=== PATIENT | female | born 1960 | race Caucasian/White ===

== ENCOUNTER 2016-04-03 07:57 | Emergency (ER) | payer MEDICAID ==
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
== END 2016-04-03 08:55 | disposition home or self-care (01) ==
LOC: ER 07:57
DX: H66.92 Otitis media, unspecified, left ear (principal); J02.9 Acute pharyngitis, unspecified; E11.9 Type 2 diabetes mellitus without complications
CPT/HCPCS: 99283; 96372; J0696; J2001; Z7502

== ENCOUNTER 2016-06-09 10:40 | Emergency (ER) | payer MEDICAID ==
[2016-06-09 10:56] VITALS: BP 122/75
--- NOTE | 2016-06-09 12:12 | ED Physician Chart ---
Chief Complaint/HPI - Patient Information Date Seen:: 06/09/16 Time Seen:: 10:59 Chief Complaint:: LEFT BREAST PAIN History of Present Illness:: THIS IS A 55 YO FEMALE WITH FOUR MONTHS OF LEFT BREAST PAIN UNDER THE NIPPLE. 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 SHE IS NOW CONCERNED WITH THE LEFT BREAST. SHE DENIES NIPPLE DISCHARGE, BLEEDING AND NO OTHER AREA OF THE BREAST MASSES OR TENDERNESS. SHE DENIES FEVER AND OF ANY OTHER MEDICAL PROBLEMS. THERE IS NO FAMILY HISTORY OF BREAST CANCER. Allergies:: Allergies Allergy/AdvReac Type Severity Reaction Status Date / Time No Known Allergies Allergy Verified 04/03/16 08:25 Vitals:: Vital Signs - 8 hr 06/09/16 06/09/16 10:56 10:57 Temp 97.8 F HR 79 RR 15 BP 122/75 122/75 O2 Sat % 97 Review of Systems - Review of Systems General/Constitutional: No fever, No chills, No weight loss, No weakness, No diaphoresis, No edema, No loss of appetite Skin: No skin lesions, No rash, No bruising Head: No headache, No light-headedness Eyes: No loss of vision, No pain, No diplopia ENT: No earache, No nasal drainage, No sore throat, No tinnitus Neck: No neck pain, No swelling, No thyromegaly, No stiffness, No mass noted Cardio Vascular: No chest pain, No palpitations, No PND, No orthopnea, No edema , other (LEFT BREAST TENDERNESS) Pulmonary: No SOB, No cough, No sputum, No wheezing GI: No nausea, No vomiting, No diarrhea, No pain, No melena, No hematochezia, No constipation, No hematemesis G/U: No dysuria, No frequency, No hematuria Musculoskeletal: No bone or joint pain, No back pain, No muscle pain Endocrine: No polyuria, No polydipsia Psychiatric: No prior psych history, No depression, No anxiety, No suicidal ideation Hematopoietic: No bruising, No lymphadenopathy Allergic/Immuno: No urticaria, No angioedema Neurological: No syncope, No focal symptoms, No weakness, No paresthesia, No headache, No seizure, No dizziness, No confusion, No vertigo Past Medical History - Past Medical History Past Medical History: No significant medical hx Family History: None Social History: Non Smoker, No Alcohol, No Drug Use Surgical History: other (BIOPSY OF THE RIGHT BREAST.) Family Medical History - Family Member Mother History Unknown: Yes Ethnicity: Hx Family Cancer: No Hx Family Coronary Artery Disease: No Hx Family Stroke: No Hx Family Diabetes: No Hx Family Seizures: No Hx Family Dementia: No Hx Family AIDS: No Hx Family HIV: No Physical Exam - Physical Examination General/Constitutional: Awake, Well-developed, well-nourished, Alert, No distress, GCS 15, Non-toxic appearing, Ambulatory Head: Atraumatic Eyes: Lids, conjuctiva normal, PERRL, EOMI Skin: Nl inspection, No rash, No skin lesions, No ecchymosis, Well hydrated, No lymphadenopathy ENMT: External ears, nose nl, Nasal exam nl, Lips, teeth, gums nl Neck: Nontender, Full ROM w/o pain, No JVD, No nuchal rigidity, No bruit, No mass, No stridor Respiratory: Nl effort/Exclusion, Clear to Auscultation, No Wheeze/Rhonchi/Rales Cardio Vascular: RRR, No murmur, gallop, rubs, NL S1 S2 Other Cardio Vascular comments:: LEFT BREAST NIPPLE AREA MASS THAT IS TENDER ON PALPATION. GI: No tenderness/rebounding/guarding, No organomegaly, No hernia, Normal BS's, Nondistended, No mass/bruits, No McBurney tenderness : No CVA tenderness Extremities: No tenderness or effusion, Full ROM, normal strength in all extremities, No edema, Normal digits & nails Neuro/Psych: Alert/oriented, DTR's symmetric, Normal sensory exam, Normal motor strength, Judgement/insight normal, Mood normal, Normal gait, No focal deficits Misc: normal gait, Normal back, No paraspinal tenderness ED Septic Shock - . Is Septic Shock (SBP<90, OR Lactate>4 mmol\L) present?: No - <6hrs of presentation: Vital Signs: Vital Signs - 8 hr 06/09/16 06/09/16 10:56 10:57 Temp 97.8 F HR 79 RR 15 BP 122/75 122/75 O2 Sat % 97 Reassessment (Disposition) - Reassessment Reassessment Condition:: Unchanged - Diagnosis Diagnosis:: LEFT BREAST MASS - Aftercare/Follow up Instructions Aftercare/Follow-Up Instructions:: Counseled pt regarding lab results/diagnosis & need follow up, Refer to Discharge Instructions, Counseled pt & family regarding lab results/diagnosis & need follow up - Patient Disposition Discharge/Transfer:: Home Condition at Disposition:: Unchanged ED Discharge Plan - Patient Disposition Admit/Discharge/Transfer: PT DISCHARGED HOME Condition at Disposition: Unchanged
--- NOTE | 2016-06-09 12:27 | Diagnostic Imaging Report ---
Ultrasound left breast HISTORY: Mass. Sonographic sector images were obtained about the quadrants of the left breast. The exam demonstrates a 0.7 x 0.5 x 0.7 cm heterogeneous nodule solid characteristics in the periareolar region. Sonographic appearance is indeterminate. Mammographic correlation is recommended. No other focal lesions are sonographically demonstrated. IMPRESSION: 1. Subcentimeter heterogeneous solid nodule within the periareolar region of the left breast. The appearance is indeterminate. Mammographic correlation is recommended.
[2016-06-09 12:32] LABS: % BASOPHILS 1.1 % (0.0-2.0); % EOSINOPHILS 0.7 % (0.0-5.0); % LYMPHOCYTES 28.3 % (20.0-50.0); % MONOCYTES 6.7 % (2.0-10.0); % NEUTROPHILS 63.2 % (40.0-80.0); HEMATOCRIT 38.9 % (35.0-45.0); HEMOGLOBIN 13.1 gm/dL (11.7-15.5); MEAN CELL VOLUME 86.6 fl (81-100); MEAN CORPUSCULAR HEMOGLOBIN 29.2 pg (27.0-31.0); MEAN CORPUSCULAR HGB CONC 33.8 pg (28.0-36.0); MEAN PLATELET VOLUME 7.9 fl; NEUTROPHILE ABSOLUTE 4.7 Th/cmm (1.8-8.0); PLATELET COUNT 356 Th/cmm (150-400); RED BLOOD COUNT 4.49 Mil/cmm (3.80-5.10); RED CELL DISTRIBUTION WIDTH 13.3 % (11.5-20.0)
[2016-06-09 12:35] LABS: WHITE BLOOD COUNT 7.6 Th/cmm (4.8-10.8)
== END 2016-06-09 13:00 | disposition home or self-care (01) ==
LOC: ER 10:40
DX: N63 Unspecified lump in breast (principal)
CPT/HCPCS: 99285; 96372; 76645; 36415; 85025; 83036; J0696

== ENCOUNTER 2016-12-30 17:07 | Emergency (ER) | payer MEDICAID ==
[2016-12-30] MEDS ORDERED: Morphine Sulfate 4 mg/mL 1mL Syr IVP ONE (18:19)
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
[2016-12-30] MEDS ORDERED: Morphine Sulfate 2 mg/mL 1mL Syr ONE (19:25)
[2016-12-30] MEDS ORDERED: Morphine Sulfate 4 mg/mL 1mL Syr ONE (19:25)
[2016-12-30] MEDS ORDERED: Pantoprazole 40 mg EC Tab PO STA (19:39)
--- NOTE | 2016-12-31 08:04 | Diagnostic Imaging Report ---
Exam: Portable examination of pelvis. HISTORY: Injury. Findings: Frontal examination of the pelvis portably at 1924 hours was reviewed. The study demonstrates no evidence of fracture dislocation. The hip joints , sacral iliac joints and pubic symphysis are intact. IMPRESSION: normal examination of pelvis.
--- NOTE | 2016-12-31 08:06 | Diagnostic Imaging Report ---
Exam: Lumbar sacral spine. HISTORY: Pain Findings: Multiple views of lumbar sacral spine reviewed. The study demonstrates vertebral bodies of normal height with preserved intervertebral disc spaces. There is no evidence of fracture dislocation or subluxation. There is no evidence of spondylolysis or spondylolisthesis. No prevertebral soft tissue swelling is noted. The pedicles are intact. The visualized posterior elements are normal. IMPRESSION: Normal examination lumbar sacral spine.
--- NOTE | 2016-12-31 08:07 | Diagnostic Imaging Report ---
EXAM: Cervical spine HISTORY: Pain FINDINGS: Multiple views of cervical spine reviewed. The study demonstrates vertebral bodies of normal height with preserved intervertebral disc spaces. There is no evidence of fracture dislocation of subluxation. There is no evidence of spondylolysis or spondylolisthesis. No prevertebral soft tissue swelling is noted the pedicles are intact. Straightening of cervical lordosis might be due to positioning or muscle spasm. IMPRESSION: Normal examination of cervical spine.
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
== END 2016-12-30 20:20 | disposition home or self-care (01) ==
LOC: ER 17:07
DX: S19.9XXA Unspecified injury of neck, initial encounter (principal); S79.911A Unspecified injury of right hip, initial encounter; S79.912A Unspecified injury of left hip, initial encounter; X58.XXXA Exposure to other specified factors, initial encounter; Y93.89 Activity, other specified; Y92.89 Other specified places as the place of occurrence of the external cause; Y99.8 Other external cause status
CPT/HCPCS: 99284; 96374; 96375; 72040; 72100; 72170; J2270; J2405; 81025-TC; J1885; Z7502

== ENCOUNTER 2017-04-24 21:38 | Emergency (ER) | payer MEDICAID ==
[2017-04-24 22:46] LABS: URINE MICROSCOPIC INDICATED? YES; URINE SOURCE RANDOM
--- NOTE | 2017-04-24 22:47 | ED Physician Chart ---
ED Chief Complaint/HPI - Patient Information Date Seen:: 04/24/17 Time Seen:: 22:46 Chief Complaint:: Urinary frequency and burning sensation History of Present Illness:: 56 yo female with history of pre-diabetes and frequent UTI, developed urinary frequency, burning sensation and itchiness for 2 weeks. She tried monostat and dushing without effect. She did not have nausea, vomiting, diarrhea or fever. Allergies:: Allergies Allergy/AdvReac Type Severity Reaction Status Date / Time No Known Allergies Allergy Verified 04/24/17 22:23 Vitals:: Vital Signs - 8 hr 04/24/17 22:00 Temp 98.2 F HR 59 RR 20 BP 137/82 O2 Sat % 98 ED Review of Systems - Review of Systems General/Constitutional: No fever Skin: No skin lesions Head: No headache Eyes: No pain ENT: No nasal drainage Neck: No neck pain Cardio Vascular: No chest pain Pulmonary: No SOB GI: No nausea, No vomiting G/U: Dysuria Musculoskeletal: No bone or joint pain Psychiatric: No prior psych history Neurological: No focal symptoms ED Past Medical History - Past Medical History Past Medical History: Other (Pre-diabetic, UTIs) Social History: Non Smoker, No Alcohol, No Drug Use Surgical History: other (Tubal ligation, right breast benign nodule removal) Family Medical History - Family Member Mother History Unknown: Yes Ethnicity: Hx Family Cancer: No Hx Family Coronary Artery Disease: No Hx Family Congestive Heart Failure: No Hx Family Hypertension: No Hx Family Stroke: No Hx Family Diabetes: No Hx Family Seizures: No Hx Family Dementia: No Hx Family AIDS: No Hx Family HIV: No ED Physical Exam - Physical Examination General/Constitutional: Awake, Alert Head: Atraumatic Eyes: PERRL Skin: No skin lesions ENMT: Nasal exam nl Neck: No nuchal rigidity Respiratory: Clear to Auscultation, No Wheeze/Rhonchi/Rales Cardio Vascular: RRR, No murmur, gallop, rubs, NL S1 S2 Other GI comments:: Low abdomen tenderness : NL external genitalia (dry white discharge) Other comments:: Right CVA percussion tenderness Neuro/Psych: No focal deficits ED Labs/Radiology/EKG Results - Lab Results Results: Laboratory Results - last 24 hr 04/24/17 04/24/17 04/24/17 22:00 22:56 22:56 WBC 5.5 RBC 4.45 Hgb 13.5 Hct 39.9 L MCV 89.8 MCH 30.3 MCHC Differential 33.7 RDW 14.6 Plt Count 357 MPV 7.1 Neutrophils % 47.5 Lymphocytes % 41.8 Monocytes % 9.4 Eosinophils % 0.9 Basophils % 0.4 Sodium 134 L Potassium 3.3 L Chloride 104 Carbon Dioxide 24.3 Anion Gap 9.0 BUN 13 Creatinine 0.6 Est GFR ( Amer) > 60.0 Est GFR (Non-Af Amer) > 60.0 BUN/Creatinine Ratio 21.7 Glucose 122 H Calcium 9.8 Urine Source RANDOM Urine Color YELLOW Urine Clarity CLEAR Urine pH 6.0 Ur Specific [place] 1.010 Urine Protein NEGATIVE Urine Glucose (UA) NEGATIVE Urine Ketones TRACE Urine Blood SMALL H Urine Nitrate NEGATIVE Urine Bilirubin NEGATIVE Urine Urobilinogen 0.2 Ur Leukocyte Esterase NEGATIVE Urine RBC 0-2 Urine WBC 0-2 Ur Epithelial Cells FEW Urine Bacteria FEW ED Assessment - Assessment General Assessment: Dysuria Vaginitis Assessment/Comments:: CBC, BMP, HbA1c, UA Diflucan 100mg po x 1 D/c home F/u PCP and Merchandise Manager if symptoms persist ED Septic Shock - . Is Septic Shock (SBP<90, OR Lactate>4 mmol\L) present?: No - <6hrs of presentation: Vital Signs: Vital Signs - 8 hr 04/24/17 22:00 Temp 98.2 F HR 59 RR 20 BP 137/82 O2 Sat % 98 ED Reassessment (Disposition) - Reassessment Reassessment Condition:: Unchanged
[2017-04-24 22:50] LABS: URINE BILIRUBIN NEGATIVE (NEGATIVE); URINE BLOOD SMALL (NEGATIVE); URINE GLUCOSE (UA) NEGATIVE (NEGATIVE); URINE KETONE TRACE mg/dL (NEGATIVE); URINE LEUKOCYTE ESTERASE NEGATIVE (NEGATIVE); URINE NITRATE NEGATIVE (NEGATIVE); URINE PROTEIN NEGATIVE (NEGATIVE); URINE UROBILINOGEN 0.2 E.U./dL (0.2 - 1.0)
[2017-04-24 23:03] LABS: URINE CLARITY CLEAR (CLEAR); URINE COLOR YELLOW
[2017-04-24 23:04] LABS: URINE BACTERIA FEW /hpf (NONE SEEN); URINE EPITHELIAL CELLS FEW /lpf (FEW); URINE RBC 0-2 /hpf (0-5); URINE WBC 0-2 /hpf (0-5)
[2017-04-24 23:06] LABS: % BASOPHILS 0.4 % (0.0-2.0); % EOSINOPHILS 0.9 % (0.0-5.0); % LYMPHOCYTES 41.8 % (20.0-50.0); % MONOCYTES 9.4 % (2.0-10.0); % NEUTROPHILS 47.5 % (40.0-80.0); HEMATOCRIT 39.9 % (41.0-60); HEMOGLOBIN 13.5 gm/dL (12-16); LYMPHOCYTE ABSOLUTE 2.3 Th/cmm (1.5-3.0); MEAN CELL VOLUME 89.8 fl (81-100); MEAN CORPUSCULAR HEMOGLOBIN 30.3 pg (27.0-31.0); MEAN CORPUSCULAR HGB CONC 33.7 pg (28.0-36.0); MEAN PLATELET VOLUME 7.1 fl; MONOCYTE ABSOLUTE 0.5 Th/cmm (0.3-1.0); NEUTROPHILE ABSOLUTE 2.7 Th/cmm (1.8-8.0); PLATELET COUNT 357 Th/cmm (150-400); RED BLOOD COUNT 4.45 Mil/cmm (3.80-5.10); RED CELL DISTRIBUTION WIDTH 14.6 % (11.5-20.0); WHITE BLOOD COUNT 5.5 Th/cmm (4.8-10.8)
[2017-04-24 23:20] LABS: BUN - UREA NITROGEN 13 mg/dL (7-25); CALCIUM SERUM 9.8 mg/dL (8.6-10.3); CARBON DIOXIDE 24.3 mEq/L (21.0-31.0); CHLORIDE 104 mEq/L (98-107); CREATININE - SERUM 0.6 mg/dL (0.6-1.2); GFR AFRICAN-AMERICAN > 60.0 ml/min (>90); GFR NON AFRICAN-AMERICAN > 60.0 ml/min; GLUCOSE 122 mg/dL (70-105); POTASSIUM SERUM 3.3 mEq/L (3.5-5.1); SODIUM SERUM 134 mEq/L (136-145)
[2017-04-25 15:09] LABS: A1C % 5.8 % (4.0-6.0)
== END 2017-04-24 23:50 | disposition home or self-care (01) ==
LOC: ER 21:38
DX: R30.0 Dysuria (principal); N77.1 Vaginitis, vulvitis and vulvovaginitis in diseases classified elsewhere
CPT/HCPCS: 36415-UA; 80048-TC; 81001-TC; 83036-90; 85025-TC; Z7502